=== PATIENT | male | born 1970 | race Caucasian/White ===

== ENCOUNTER 2017-10-15 11:53 | Emergency (ER) | payer SELFPAY ==
[2017-10-15 11:56] VITALS: BP 161/113; PULSE 73; RESP 22; TEMP 36.8; O2SAT 99; BMI 28.6
--- NOTE | 2017-10-15 12:08 | ED.VISSUMM ---
- ER Visit Summary Date of Service: 10/15/17 Chief Complaint: [Cough] History of Present Illness: The patient is a 47 M [presents with a cough that started 3 days ago. Patient describes sore throat, body aches, headache, and generalized weakness. Patient had subjective fever and chills 2 days ago. Patient has been around his significant other's daughter who is been ill with an upper respiratory infection. Patient is a smoker. Patient denies recent travel.] Patient cough at times productive of some slightly thick to yellow sputum. Physical Examination: [HEENT-PERRLA, EOMI. Cranial nerves II through XII grossly intact. TMs clear. Mucous membranes moist. No adenopathy. Cardiovascular-regular rate and rhythm without murmur or ectopy Lungs-clear to auscultation, chest wall stable without crepitus or subcu emphysema Abdomen-normoactive bowel sounds, soft, nontender, no rebound or rigidity, no peritoneal signs. Extremities-intact ?4, normal range of motion, normal pulses, atraumatic] Test Results: [None indicated] Emergency Department Course and Treatment: None [] Treatment Plan: [Patient will be given Tessalon Perles for his cough]. I feel patient likely has influenza and he is out of the time window for Tamiflu. Disposition: [Discharge to home in stable condition. Patient to follow-up with primary care physician transportation mechanic for no doc. Patient to return if increased difficulty breathing or condition should worsen in any way.] Impression: [Influenza] This note was generated with [employer] dictation software. It may contain incorrect words, spelling, and punctuation that were not noted in review of the chart prior to signing ED Disposition - Plan for ED Patient: Chief Complaint: Cough Referrals: Care Physician,No Primary [Primary Care Provider] -
--- NOTE | 2017-10-15 12:11 | ED.DCSUM_ITS ---
- ER Visit Summary Date of Service: 10/15/17 Chief Complaint: [Cough] History of Present Illness: The patient is a 47 M [presents with a cough that started 3 days ago. Patient describes sore throat, body aches, headache, and generalized weakness. Patient had subjective fever and chills 2 days ago. Patient has been around his significant other's daughter who is been ill with an upper respiratory infection. Patient is a smoker. Patient denies recent travel.] Patient cough at times productive of some slightly thick to yellow sputum. Physical Examination: [HEENT-PERRLA, EOMI. Cranial nerves II through XII grossly intact. TMs clear. Mucous membranes moist. No adenopathy. Cardiovascular-regular rate and rhythm without murmur or ectopy Lungs-clear to auscultation, chest wall stable without crepitus or subcu emphysema Abdomen-normoactive bowel sounds, soft, nontender, no rebound or rigidity, no peritoneal signs. Extremities-intact ?4, normal range of motion, normal pulses, atraumatic] Test Results: [None indicated] Emergency Department Course and Treatment: None [] Treatment Plan: [Patient will be given Tessalon Perles for his cough]. I feel patient likely has influenza and he is out of the time window for Tamiflu. Disposition: [Discharge to home in stable condition. Patient to follow-up with primary care physician environmental economist for no doc. Patient to return if increased difficulty breathing or condition should worsen in any way.] Impression: [Influenza] This note was generated with [employer] dictation software. It may contain incorrect words, spelling, and punctuation that were not noted in review of the chart prior to signing ED Disposition - Plan for ED Patient: Chief Complaint: Cough Referrals: Care Physician,No Primary [Primary Care Provider] -
--- NOTE | 2017-10-15 12:11 | ED.DEP ---
ED Disposition - Plan for ED Patient: Chief Complaint: Cough Instructions: ED Flu Prescriptions: Benzonatate [Tessalon Perle] 200 mg PO TID PRN PRN #20 cap PRN Reason: Cough Referrals: Care Physician,No Primary [Primary Care Provider] - Lucina Rhodes MD [STAFF PHYSICIAN] - 5-7 Days
== END 2017-10-15 12:18 | disposition home or self-care (01) ==
LOC: ED 12:14
PROVIDERS: Emergency Provider Emergency Medicine
DX: J11.1 Influenza due to unidentified influenza virus with other respiratory manifestations (principal); F17.200 Nicotine dependence, unspecified, uncomplicated
CPT/HCPCS: 99282

== ENCOUNTER → 2018-08-29 14:32 | Outpatient (CLI) | payer SELFPAY ==
[2018-08-29 13:59] VITALS: BMI 28.6
[2018-08-29 14:51] LABS: Bacteria 0 SEEN /hpf (None Seen)
[2018-08-29 15:11] LABS: Color, Urine Yellow (Yellow); Glucose, Dipstick Normal (Normal); Ketone-Dipstick Negative (Negative); Leukocyte Esterase-Dipstick 100 /ul (Negative); Nitrite-Dipstick Negative (Negative); Occult Blood-Urine 150 /ul (Negative); Protein-Dipstick 30 mg/dl (Negative); Specific Gravity, Urine 1.015 (1.002-1.030); Urine Bilirubin Dipstick Negative (Negative); Urine Clarity Sl. Cloudy (Clear); Urine Urobilinogen Normal (Normal)
[2018-08-29 15:21] LABS: Amorphous Sediment 1+ PHOS; Mucous, Urine 2+ /hpf (<or=2+); Red Blood Cells-Urine 50-100 SEEN /hpf (0-5); Squamous Epithelial Cells - UA 0-5 SEEN /hpf (0-5); White Blood Cells 50-100 SEEN /hpf (0-5)
== END ==
LOC: LABSPEC 14:36
PROVIDERS: Referring Provider Physician Assistant Surgical; Visit Provider Physician Assistant Surgical
DX: R10.9 Unspecified abdominal pain (principal)
CPT/HCPCS: 81001; 87086

== ENCOUNTER 2020-02-09 17:22 | Emergency (ER) | payer OTHER, SELFPAY ==
[2018-08-29 13:59] VITALS: BMI 28.6
[2020-02-09 17:23] VITALS: BP 160/97; PULSE 82; RESP 16; TEMP 36.8; O2SAT 94; BMI 29.0
--- NOTE | 2020-02-09 17:37 | EKG12_ITS ---
Test Reason : PALPS Blood Pressure : / mmHG Vent. Rate : 073 BPM Atrial Rate : 073 BPM P-R Int : 148 ms QRS Dur : 088 ms QT Int : 376 ms P-R-T Axes : 048 -08 020 degrees QTc Int : 414 ms Sinus rhythm with occasional Premature ventricular complexes Otherwise normal ECG Confirmed by ORALIA ROMAN, MARGOTH ([id number]), field map editor [place] ([id number]) on 02/12/2020 11:08:18 AM Referred By: [email or web address] Confirmed By:MARGOTH BARTON MD
[2020-02-09] MEDS: Aspirin 81 MG TAB.CHEW 324 MG PO (18:11)
[2020-02-09] MEDS: 0.9% Normal Saline 1,000 ML 150 ML IV (18:12)
--- NOTE | 2020-02-09 18:15 | RAD_ITS ---
STUDY: X-RAY CHEST REASON FOR EXAM: Male, 49 years old. PT C/O PALPITATIONS AND SOB SINCE SATURDAY. TECHNIQUE: Palpitation COMPARISON: None. FINDINGS: Nonspecific elevation of right hemidiaphragm. Lungs are clear.. There is no demonstrated pleural abnormality. Normal size heart. Normal mediastinum and leyda. Normal visualized pulmonary arteries. Normal visualized aortic arch and descending thoracic aorta. Dorsal spine demonstrates mild degenerative change. Normal visualized ribs, clavicles, and shoulders. There is no demonstrated abnormality of the visualized soft tissue structures of the upper abdomen. RAD/Chest 1 View (Portable) IMPRESSION: No acute cardiopulmonary pathology Electronically Signed: Shane Steele MD at 18:36 EDT , Service support ,
[2020-02-09 18:20] LABS: Absolute Lymphocyte Count 2.72 X10^3/uL (0.83-4.51); Absolute Neutrophil Count 4.4 X10^3/uL (2.0-7.7); Basophil# 0.04 X10^3/uL; Basophil% 0.5 % (0-1); Eosinophil# 0.18 X10^3/uL; Eosinophils% 2.2 % (0-5); Hematocrit 46.5 % (40-54); Hemoglobin 15.7 g/dL (13.0-16.5); Lymphocyte # 2.72 X10^3/ul (4.0); Lymphocyte % 33.9 % (19-41); Mean Corp Hgb Conc 33.8 g/dL (32-36); Mean Corpuscular Hgb 30.4 pg (27.0-32.0); Mean Corpuscular Volume 90.1 fL (80-94); Mean Platelet Vol. 10.3 fl (6.2-12.0); Monocyte% 8.7 % (0-10); NRBC Flagged by Analyzer 0 % (0-5); Neutrophil # 4.35 X10^3/uL (2.7-7.7); Neutrophil % 54.3 % (47-70); Platelet Count 206 K/mm3 (150-450); RBC Distribution Width CV 12.1 % (11.6-14.6); RBC Distribution Width SD 39.7 fl (35.1-43.9); Red Blood Count 5.16 M/mm3 (4.6-6.2)
[2020-02-09 18:26] VITALS: BP 143/85; PULSE 66; RESP 15; O2SAT 97
[2020-02-09 18:50] LABS: Anion Gap 6 (5-15); BUN 15 mg/dL (7-18); BUN/Creat Ratio 21.1 RATIO (10-20); Calcium,Total 9.1 mg/dL (8.5-10.1); Chloride 107 mmol/L (98-107); Creatinine, Serum 0.71 mg/dL (0.70-1.30); EST Glomerular Filtration Rate 125 mL/min (>60); Est Glom Filt Rate - Afr Amer 152 mL/min (>60); Estimated Creatinine Clearance 114.82 ml/min; Glucose 88 mg/dL (74-106); Potassium 3.7 mmol/L (3.5-5.1); Sodium Level 141 mmol/L (136-145); Thyroid Stim Hormone (TSH) 2.45 uIU/mL (0.358-3.74)
[2020-02-09 19:34] VITALS: BP 140/82; PULSE 66; RESP 13; O2SAT 100
[2020-02-09 20:10] VITALS: BP 121/95; PULSE 62; RESP 14
--- NOTE | 2020-02-09 20:44 | ED.VISSUMM ---
- ER Visit Summary Date of Service: 02/09/20 Chief Complaint: Palpitations History of Present Illness: The patient is a 49 M who is only Azeri-speaking. All communication was performed through an stock worker and deliverer on the iPad. Patient reports he has palpitations that began 2 days ago. Reports that it is a irregular beat that lasts 1 to 2 seconds and is occurring every 4 to 5 seconds. He denies any associated chest pain or shortness of breath. He denies any other complaints. Physical Examination: Vitals: Stable. Afebrile. General: Well-nourished and well-developed. Head: Normocephalic atraumatic. Neck: Supple, no lymphadenopathy. No JVD. Nontender. Cardiovascular: Regular rate and rhythm. No murmurs. Respiratory: No respiratory distress. Clear to auscultation bilaterally. Abdominal: Soft, nontender, nondistended, normal bowel sounds. No guarding, rebound, or peritoneal signs. Back: Nontender. Extremities: Nontender, no edema. Skin: Normal color, no rash. Neurologic: Alert and oriented ?3. Cranial nerves II through XII are intact. Normal strength and sensation. Psych: Normal affect. Test Results: EKG is sinus at [address] changes and PVCs. There is no old EKG for comparison. Troponin is less than 0.015. Chem-7 is normal. CBC is normal. TSH is normal. Clinical Impression(s) from Imaging Studies Chest X-Ray 02/09/20 18:15 IMPRESSION: No acute cardiopulmonary pathology Electronically Signed: Shane Steele MD at 18:36 EDT , Service support , Emergency Department Course and Treatment: Monitor shows the patient to have occasional PVCs. These are what he is sensing when asked. Patient is resting comfortably. He was reassured. He was given aspirin p.o. Treatment Plan: Patient will be discharged with instructions [facility] 5 [facility] for further evaluation and establish a primary care physician. Return to the emergency department for any worsening symptoms. Disposition: To home in improved and stable condition. Impression: 1. PVCs. This note was generated with [employer] software. It may contain incorrect words, spelling, and punctuation that were not noted in review of the chart prior to signing ED Disposition - Plan for ED Patient: Disposition: Home or Assisted Living Instructions: Premature Ventricular Contractions Referrals: Kamryn Humphreys [NON-STAFF] - 3-5 Days Print Language: Azeri
== END 2020-02-09 20:58 | disposition home or self-care (01) ==
LOC: ED 18:43
PROVIDERS: Emergency Provider Emergency Medicine
DX: I49.3 Ventricular premature depolarization (principal); F17.200 Nicotine dependence, unspecified, uncomplicated
CPT/HCPCS: 71045; 80048; 84443; 84484; 85025; 93005; 99284; J7030; A4216